=== PATIENT | female | born 1990 | race Caucasian/White ===

== ENCOUNTER → 2017-12-11 | Outpatient (CLI) | payer OTHER | END | disposition home or self-care (01) | LOC: LABWHC1 16:02 | PROVIDERS: ATTEND Physician Assistant Medical | DX: L70.0 Acne vulgaris (principal) | CPT/HCPCS: 36415; 84702 ==

== ENCOUNTER → 2018-12-24 | Outpatient (CLI) | payer BC | END | disposition home or self-care (01) | LOC: LABWHC1 15:01 | PROVIDERS: ATTEND Physician Assistant Medical | DX: L70.0 Acne vulgaris (principal) | CPT/HCPCS: 36415; 84702 ==

== ENCOUNTER → 2020-07-13 | Outpatient (CLI) | payer SELFPAY ==
[2020-07-13 17:48] LABS: HCG,Qualitative Serum Not Detected
[2020-07-14 04:15] LABS: Potassium 3.5 mmol/L (3.5-5.5)
== END | disposition home or self-care (01) ==
LOC: LABWHC1 15:57
PROVIDERS: ATTEND Physician Assistant Medical
DX: L70.0 Acne vulgaris (principal)
CPT/HCPCS: 36415; 84132; 84703

== ENCOUNTER 2024-01-17 09:07 | Outpatient (CLI) | payer OTHER ==
[2024-01-17 10:55] VITALS: BP 128/76; PULSE 76; RESP 16; TEMP 98.6
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
== END 2024-01-17 10:05 | disposition home or self-care (01) ==
LOC: FBPOP 09:07
PROVIDERS: ATTEND Obstetrics & Gynecology
DX: O9A.213 Injury, poisoning and certain other consequences of external causes complicating pregnancy, third trimester (principal); S99.911A Unspecified injury of right ankle, initial encounter; R25.2 Cramp and spasm; Z3A.36 36 weeks gestation of pregnancy; W01.0XXA Fall on same level from slipping, tripping and stumbling without subsequent striking against object, initial encounter
CPT/HCPCS: 59025; 99213